=== PATIENT | male | born 1965 | race Caucasian/White ===

== ENCOUNTER 2024-11-22 09:26 | Emergency (ER) | payer BC, SELFPAY ==
--- NOTE | 2024-11-22 | XR_ITS ---
Examinations: MRI Brain without intravenous contrast. MRI brain with intravenous contrast MRA brain with intravenous contrast. MRA brain without intravenous contrast MRA neck with intravenous contrast Date and time of exam: November 22, 2024 at 1833 hours INDICATIONS: Dizziness nausea lower leg weakness beginning 2 days ago, a CT brain scan November 22, 2024 large abnormal area of edema in the right temporal lobe Technique: Multiple axial and sagittal images of the brain have been obtained Siemens high-resolution 1.5 Christine short bore scanner is utilized. Sagittal sections, T1-weighted, TR 500, TE 14 Axial sections proton density and T2-weighted, TR 3,000, TE 34, TR 3,000, TE 91 Inversion recovery axial images, TR 9,260, TE 111, TI 2,500 Diffusion weighted images, axial sections, TR 4,800, TE 128, B value 1,000 Axial sections, ADC map, TR 4,800, TE 128. Contrast images have been obtained post intravenous 20 cc Gadolinium. T1-weighted axial and coronal images post contrast have been obtained. Angiographic images of neck and brain are obtained pre and post contrast. 3-D post processing performed, including brain, extracranial neck arterial maximum intensity projections Findings: Sellaturcica is not enlarged. The optic chiasm and infundibular stalk are not remarkable. Prepontine and interpeduncular cisterns are not enlarged. No localized enlargement of the medulla or pattie. Fourth ventricle and cerebellar tonsils normal in position. Subacute hemorrhage is not seen. Fourth ventricle is midline. Mass in the cerebellopontine angle region is not evident. 7th and 8th nerve complexes exhibits symmetry. Globes are symmetrical with no retro-orbital mass. Increased white matter signal prominent in the right temporal lobe measuring up to 8 x 4 cm Diffusion-weighted images demonstratevery subtle foci of restricted diffusion without signal deficit on the corresponding ADC map. Mass-effect upon the ventricular system is not identified. Small linear area of enhancement in the right temporal lobe, axial image 13 and subtle areas of enhancement in the edema coronal image 14 MRA brain carotid images no carotid stenoses, no large vessel occlusions Impression: Large area of edema, 8 x 4 cm in the right temporal lobe No findings diagnostic for acute infarct Subtle areas of enhancement in the large area of edema as described above, favoring cerebral neoplasm Recommend this patient return in the a.m. for triple dose gadolinium postcontrast images to better assess for tumor enhancement
[2024-11-22 09:54] VITALS: BP 119/88; PULSE 97; RESP 16; TEMP 37.1; O2SAT 95; BMI 24.1
--- NOTE | 2024-11-22 10:13 | XR_ITS ---
Examination: CT brain head without contrast. 2-D sagittal coronal reconstructions Date and time of exam:November 22, 2024 1020 hours INDICATIONS: Onset left-sided body numbness beginning this morning CTDI: vol (mGy):46.8 DLP: (mGycm):947 Technique: Multiple CT axial sections of the brain have been obtained, 5 mm slice thickness. Contrast has not been administered. 2-D sagittal, coronal reconstructions have been obtained Low dose protocols were performed. One or more of the following dose reduction techniques were used; automated exposure control, adjustment of the mA and/or KV according to patient size, use of iterative reconstruction technique. Findings: Large area of edema in the right temporal lobe with central increased density Mass effect with shift of the frontal horns to the left 5 mm No acute hemorrhage Cranial vault is intact IMPRESSION: Large abnormal area of edema in the right temporal lobe with central increased density, differential would include brain neoplastic lesion, infarct not excluded Recommend brain MRI MRA follow-up, pre and postcontrast
[2024-11-22 10:43] LABS: Basophils % (Auto) 1 % (0-2.5); Eosinophils # (Auto) 0.1 Thou/mm3 (0.0-0.5); Eosinophils % (Auto) 3 % (0-10); Hematocrit 50.2 % (41.0-53.0); Hemoglobin 17.1 g/dL (13.5-16.0); Immature Granulocytes % (Auto) 0 % (0-0); Immature Granulocytes Auto 0.01 Thou/mm3 (0.00-0.00); Lymphocytes # (Auto) 1.1 Thou/mm3 (1.0-4.8); Lymphocytes % (Auto) 22 % (10-50); Mean Corpuscular HGB Conc 34.1 g/dl (31.0-37.0); Mean Corpuscular Volume 91 fL (80-100); Monocytes # (Auto) 0.3 Thou/mm3 (0.0-0.8); Monocytes % (Auto) 7 % (0-12); Neutrophils # (Auto) 3.2 Thou/mm3 (1.8-7.7); Neutrophils % (Auto) 67 % (37-80); Nucleated Red Blood Cell % 0 /100 WBC (0); Platelet Count 158 Thou/mm3 (140-440); RDW Standard Deviation 47.8 fL (35.1-43.9); Red Blood Count 5.52 Miln/mm3 (4.50-5.90); White Blood Count 4.7 Thou/mm3 (3.8-10.6)
[2024-11-22 11:12] LABS: Alanine Aminotransferase 41 U/L (10-49); Albumin, Serum 4.9 gm/dL (3.4-4.8); Albumin/Globulin Ratio 1.8 (1.2-2.2); Alkaline Phosphatase 71 U/L (46-116); Anion Gap 8 (7-16); Aspartate Amino Transferase 35 U/L (0-34); BUN/Creatinine Ratio 8 Ratio (12-20); Bilirubin,Total 0.9 mg/dL (0.3-1.2); Blood Urea Nitrogen 10 mg/dL (9-23); Calcium 9.7 mg/dL (8.3-10.6); Calcium (Corrected) 9.7 mg/dL (8.5-10.1); Carbon Dioxide 26.2 mMol/L (20.0-31.0); Chloride 109 mMol/L (98-107); Creatinine (Component) 1.2 mg/dL (0.6-1.3); Estimated Creatinine Clearance 64.6 mL/min (>60); Globulin 2.8 gm/dL (2.3-3.5); Glucose 104 mg/dL (74-106); Lipase 36 U/L (12-53); Osmolality,Calculated 283 (275-295); Potassium 4.7 mMol/L (3.4-5.1); Sodium 143 mMol/L (136-145); Total Protein 7.7 gm/dL (5.7-8.2); eGFR > 60 See Note
--- NOTE | 2024-11-22 12:20 | PD.EDRME ---
Rapid [facility] Screening [facility]am [facility] Arrival date/time: 11/22/24 09:26 Chief Complaint: Dizziness Time Seen by Provider: 11/22/24 09:56 Vital signs: Vital Signs Temperature 98.8 F 11/22/24 09:54 Pulse Rate 97 11/22/24 09:54 Respiratory Rate 16 11/22/24 09:54 Blood Pressure 119/88 H 11/22/24 09:54 Pulse Oximetry (%) 95 11/22/24 09:54 Oxygen Delivery Method Room Air 11/22/24 09:54 [facility] Narrative: 59 y/o male patient presents to ED with complaint of N/T to left lower leg that waxes and wanes X 2 days. He denies head trauma, he denies headache or vision loss. He states he has gained 8 lbs over the last week but attributes it to possible recent spam consumption. He denies previous hx of HTN but attests to anxiety and depression.
--- NOTE | 2024-11-22 12:30 | PC.NURSE ---
Patient presents to ED with c/o dizziness x2 episodes in the last 4days. Patient is ambulatory, alert, oriented x4, Patient with hx of chiari malformation. Patient updated with plan of care and call light is within reach.
--- NOTE | 2024-11-22 12:48 | PD.EDDIZZY ---
ED Dizzyness RME/HPI General Chief Complaint: Dizziness Stated Complaint: Anxious, dizziness at 0200, left leg numbness Time Seen by Provider: 11/22/24 09:56 Arrival date/time: 11/22/24 09:26 59-year-old male with a past medical history of Chiari malformation, presents to the ED with a complaint of dizziness, left eye watering and left leg tingling/ shock feeling twice since Friday. He states the episodes last a few minutes, the last 1 occurring at 2 AM this morning. He denies room spinning but states he feels like he leaves his body for a minute and then returns . He denies any visual or hearing changes, denies numbness, tingling or weakness to his upper extremities. He denies any numbness or weakness to his bilateral lower extremities only the episodic tingling of his left lower extremity. He denies any difficulty with speech or walking and denies any facial asymmetry. He has had nausea and shortness of breath for approximately 1 year. He has occasional headaches to the bilateral occiput or occasionally to the left occiput/parietal area. He denies any recent illness with fever, chills, cough, vomiting or abdominal pain. He is a previous smoker, having smoked for 2 to 3 years in the 1980s but has not smoked since. He has occasional alcohol consumption. He denies any unintentional weight loss. RME / HPI RME / HPI Narrative: 59 y/o male patient presents to ED with complaint of N/T to left lower leg that waxes and wanes X 2 days. He denies head trauma, he denies headache or vision loss. He states he has gained 8 lbs over the last week but attributes it to possible recent spam consumption. He denies previous hx of HTN but attests to anxiety and depression. Related Data Home Medications ?Medication ?Instructions ?Recorded ?Confirmed buprenorphine HCl 150 mcg buccal 75 mcg buccal Q12H 04/14/23 09/11/23 film (Belbuca) doxazosin 4 mg tablet 4 mg PO HS 04/14/23 09/11/23 fluticasone furoate 50 2 mcg inhalation DAILY 04/14/23 09/11/23 mcg/actuation blister powder for inhalation oxybutynin chloride 5 mg tablet 5 mg PO HS 04/14/23 09/11/23 sertraline 100 mg tablet 100 mg PO HS 04/14/23 09/11/23 pregabalin 25 mg capsule 25 mg PO TID 09/11/23 09/11/23 Allergies Allergy/AdvReac Type Severity Reaction Status Date / Time No Known Allergies Allergy Verified 11/22/24 09:33 Review of Systems Review of Systems Systems Reviewed: All systems reviewed, normal except as documented Past Medical History Past Medical History NEUROLOGIC: Positive Neurological Disorders (chiari malformation) and Migraine; Negative Seizures CARDIAC: Negative Cardiac Disorders or Congestive Heart Failure RESPIRATORY: Negative Chronic Obstructive Pulmonary Disease (COPD) GASTROINTESTINAL: Negative Gastrointestinal Disorders GENITOURINARY: Positive Genitourinary Disorders and Benign Prostatic Hyperplasia; Negative Renal Disease MUSCULOSKELETAL: Positive Musculoskeletal Disorders, Arthritis, Degenerative Disk Disease, Scoliosis (thoracic area) and Degenerative Joint Disease ENDOCRINE: Negative Endocrine Disorders, Diabetes Mellitus Type 1 or Diabetes Mellitus Type 2 HEMATOLOGIC: Negative Blood Disorders PSYCHO/SOCIAL: Positive Depression, Anxiety and Post Traumatic Stress Disorder OTHER HISTORY: Positive Hospitalization (surgery), Chicken Pox and Mumps; Negative Autoimmune Disease, Shingles, Blood Transfusions, Blood Transfusion Reaction, Anesthesia Reactions, MRSA or Cancer Family History FAMILY HISTORY: Positive Family Respiratory Disorders, Family Cardiac Disorders, Family Cancer and Family Surgery; Negative Family Psychiatric Problems, Family Gastrointestinal Problems or Family Anesthesia Reaction Surgical History SURGICAL: Positive Bowel Surgery (abd hernia) OTHER SURGICAL HX: testicular hydrocele Social History SMOKING STATUS: Former smoker ED Exam Narrative Physical exam: Alert and oriented 59-year-old male, no acute distress. Vital signs blood pressure 119/88, pulse 97, respirations 16 and nonlabored, temp 98.8, O2 sat 95% on room air. Pupils are PERRL, EOMs intact, no nystagmus noted, no facial asymmetry, equal sensory and motor. Cranial nerves II through XII grossly intact. Equal casting room helper strength, equal pedal push/pull. DTRs are equal bilaterally to upper and lower extremities. Lungs are clear, regular rate and rhythm without murmurs. Course Course Course Narrative: Labs reveal a normal white count with elevated hemoglobin of 17.1 and normal hematocrit of 50.2% with normal platelets of 158. Chemistry panel reveals mildly elevated chloride of 109, normal sodium, potassium, CO2, gap. BUN and creatinine are normal. AST is minimally elevated at 35 with normal ALT and alk phos. Lipase is normal at 36. CT Brain Findings: Large area of edema in the right temporal lobe with central increased density. Mass effect with shift of the frontal horns to the left 5 mm. No acute hemorrhage. Cranial vault is intact. IMPRESSION: Large abnormal area of edema in the right temporal lobe with central increased density, differential would include brain neoplastic lesion, infarct not excluded. Recommend brain MRI MRA follow-up, pre and postcontrast Quality Measures Suspected type of Stroke: Acute Ischemic Tenecteplase given: not given stroke Orders Category Date Time Status CT Screening NOW Care 11/22/24 13:[address] Screening X1 Care 11/22/24 13:11 Active IV [Insert IV] NOW Care 11/22/24 15:[address] chest abdomen pelvis w Stat Exams 11/22/24 13:[address] head/brain wo con Stat Exams 11/22/24 10:13 Completed MR brain wwo MRA brn wo pabon w Stat Exams 11/22/24 Completed CBC Stat Lab 11/22/24 10:29 Completed CMP [Comprehensive Metabolic Panel] Stat Lab 11/22/24 10:29 Completed Lipase Stat Lab 11/22/24 10:29 Completed Vital Signs Vital signs: Vital Signs Temperature 98.8 F 11/22/24 09:54 Pulse Rate 97 11/22/24 09:54 Respiratory Rate 16 11/22/24 09:54 Blood Pressure 119/88 H 11/22/24 09:54 Pulse Oximetry (%) 95 11/22/24 09:54 Oxygen Delivery Method Room Air 11/22/24 09:54 Dizziness MDM Narrative MDM Narrative:: 59-year-old male with a past medical history of Chiari malformation, presents to the ED with a complaint of dizziness, left eye watering and left leg tingling/ shock feeling twice since Friday. He states the episodes last a few minutes, the last 1 occurring at 2 AM this morning. He denies room spinning but states he feels like he leaves his body for a minute and then returns . He denies any visual or hearing changes, denies numbness, tingling or weakness to his upper extremities. He denies any numbness or weakness to his bilateral lower extremities only the episodic tingling of his left lower extremity. He denies any difficulty with speech or walking and denies any facial asymmetry. He has had nausea and shortness of breath for approximately 1 year. He has occasional headaches to the bilateral occiput or occasionally to the left occiput/parietal area. He denies any recent illness with fever, chills, cough, vomiting or abdominal pain. He is a previous smoker, having smoked for 2 to 3 years in the 1980s but has not smoked since. He has occasional alcohol consumption. He denies any unintentional weight loss. Alert and oriented 59-year-old male, no acute distress. Vital signs blood pressure 119/88, pulse 97, respirations 16 and nonlabored, temp 98.8, O2 sat 95% on room air. Pupils are PERRL, EOMs intact, no nystagmus noted, no facial asymmetry, equal sensory and motor. Cranial nerves II through XII grossly intact. Equal casting room helper strength, equal pedal push/pull. DTRs are equal bilaterally to upper and lower extremities. Lungs are clear, regular rate and rhythm without murmurs. Labs reveal a normal white count with elevated hemoglobin of 17.1 and normal hematocrit of 50.2% with normal platelets of 158. Chemistry panel reveals mildly elevated chloride of 109, normal sodium, potassium, CO2, gap. BUN and creatinine are normal. AST is minimally elevated at 35 with normal ALT and alk phos. Lipase is normal at 36. CT Brain Findings: Large area of edema in the right temporal lobe with central increased density. Mass effect with shift of the frontal horns to the left 5 mm. No acute hemorrhage. Cranial vault is intact. IMPRESSION: Large abnormal area of edema in the right temporal lobe with central increased density, differential would include brain neoplastic lesion, infarct not excluded. Recommend brain MRI/MRA follow-up, pre and postcontrast CT chest abdomen and pelvis with contrast findings: IMPRESSION: Negative for pulmonary artery emboli. No mediastinal lymphadenopathy.No pneumonia pulmonary edema or pleural disease. Fatty infiltration throughout the liver. No renal or ureteral calculi, no hydronephrosis. Normal appendix. No bowel obstruction or diverticulitis. Moderate prostatomegaly. Brain MRI/MRA findings: Impression: Large area of edema, 8 x 4 cm in the right temporal lobe. No findings diagnostic for acute infarct. Subtle areas of enhancement in the large area of edema as described above, favoring cerebral neoplasm. Recommend this patient return in the a.m. for triple dose gadolinium. postcontrast images to better assess for tumor enhancement. Discussed all results with patient and attempted repeat neuro exam, however patient indicates he wants to leave because I have animals in my elderly father at home who need me. Consequences explained including worsening cerebral edema, causing herniation, permanent disability and even . Patient understands the consequences of leaving AGAINST MEDICAL ADVICE and continues to state I want to go home . Patient was encouraged to return for any new or worsening symptoms as soon as possible. Patient signed AMA form at 8:20 PM and left the ED, ambulatory without difficulties. Patient data External records reviewed:: [facility] [place] previous records Clinical information provided by:: patient Social determinants that could affect healthcare access:: mental health Patient has the following chronic illnesses:: Chiari malformation, depression, anxiety How is presenting disease/condition affected by chronic disease/condition?: exacerbated by Evaluation data The following diagnostics were reviewed and interpreted by me:: lab results and radiology exam(s) Lab and/or radiology exams considered but not ordered:: N/A Interpretation Summary: Labs reveal a normal white count with elevated hemoglobin of 17.1 and normal hematocrit of 50.2% with normal platelets of 158. Chemistry panel reveals mildly elevated chloride of 109, normal sodium, potassium, CO2, gap. BUN and creatinine are normal. AST is minimally elevated at 35 with normal ALT and alk phos. Lipase is normal at 36. CT Brain Findings: Large area of edema in the right temporal lobe with central increased density. Mass effect with shift of the frontal horns to the left 5 mm. No acute hemorrhage. Cranial vault is intact. IMPRESSION: Large abnormal area of edema in the right temporal lobe with central increased density, differential would include brain neoplastic lesion, infarct not excluded. Recommend brain MRI MRA follow-up, pre and postcontrast. CT chest abdomen and pelvis with contrast findings: IMPRESSION: Negative for pulmonary artery emboli. No mediastinal lymphadenopathy.No pneumonia pulmonary edema or pleural disease. Fatty infiltration throughout the liver. No renal or ureteral calculi, no hydronephrosis. Normal appendix. No bowel obstruction or diverticulitis. Moderate prostatomegaly. Brain MRI/MRA findings: Impression: Large area of edema, 8 x 4 cm in the right temporal lobe. No findings diagnostic for acute infarct. Subtle areas of enhancement in the large area of edema as described above, favoring cerebral neoplasm. Recommend this patient return in the a.m. for triple dose gadolinium. postcontrast images to better assess for tumor enhancement. Medications / Prescriptions Medications or Prescriptions considered but not ordered:: N/A Medication administrations:: N/A Consultations Consultation(s) initiated? (list below): Yes Consultation #1 (Physician, Specialty, Details): Discussed case with Dr. Negro. Who recommends consult with neurology after a repeat neuro exam. 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 Admission Indicated Admission indicated?: indicated Explain why admission is indicated or not indicated:: Advised patient of need for transfer to higher level of care for neurosurgical evaluation and treatment, however he wants to leave AMA as documented above. Admission Request Was there a request for admission?: No Admission Attestation Admission request attestation: Advised patient of need for transfer to higher level of care for neurosurgical evaluation and treatment, however he wants to leave AMA as documented above. Disposition Plan Disposition Plan: other (specify) (AMA) Discharge Plan Plan Patient Disposition: Left Against Medical Advice Prescriptions/Referrals Prescriptions/Med Rec: No Action sertraline 100 mg Tablet 100 mg PO HS oxybutynin chloride 5 mg Tablet 5 mg PO HS fluticasone furoate 50 mcg/actuation Blister With Device 2 mcg INHALATION DAILY doxazosin 4 mg Tablet 4 mg PO HS buprenorphine HCl [Belbuca] 150 mcg Film 75 mcg BUCCAL Q12H pregabalin 25 mg capsule 25 mg PO TID Patient Comments: TAKE 1 CAPSULE BY MOUTH THREE TIMES A DAY Referrals: Wally Caldwell PA-C [Primary Care Provider] - In 1 week Problem List Clinical Impression: Cerebral edema, Brain neoplasm Impression comment: Patient left AMA after discussion of diagnostic findings. AMA form signed. Patient/Caregiver Discharge Instructions Print Language: Amharic COLTON/SKIP Supervising Physician PA/CORPORATE [employer]OURCES MANAGER Supervising Physician: Dr. Guallpa
[2024-11-22 12:52] VITALS: BP 127/82; PULSE 86; RESP 14; TEMP 36.6; O2SAT 96
--- NOTE | 2024-11-22 13:11 | XR_ITS ---
Examination: CT chest with intravenous contrast CT abdomen with intravenous contrast CT pelvis with intravenous contrast 2-D coronal and sagittal reconstructions Time of exam: November 22, 2024, 1547 hours INDICATIONS: Chest pain abdominal pain and shortness of breath dyspnea and dizziness today CTDI: vol (mGy) : 6.87 DLP: (mGycm): 563 Technique: Multiple axial images of the chest, abdomen and pelvis with intravenous contrast, 3.0 mm slice thickness. Images obtained post intravenous injection Isovue 370 60 cc. 2-D sagittal and coronal reconstructions. Low dose protocols were performed. One or more of the following dose reduction techniques were used; automated exposure control, adjustment of the mA and/or KV according to patient size, use of iterative reconstruction technique. Findings: No thoracic aortic aneurysmal dilatation or dissection. No pulmonary artery filling defects No paratracheal tracheobronchial or bronchopulmonary adenopathy. No pneumonia or pulmonary edema or pleural disease Fatty infiltration throughout the liver 4 mm liver cyst No gallstones No pancreatic or adrenal mass No renal or ureteral calculi, no hydronephrosis Aorta normal size No bowel obstruction Normal appendix No diverticulitis Transverse prostate dimension 5.3 cm Fat-containing inguinal hernias Contracted urinary bladder Advanced degenerative disc disease L5-S1 IMPRESSION: Negative for pulmonary artery emboli No mediastinal lymphadenopathy. No pneumonia pulmonary edema or pleural disease. Fatty infiltration throughout the liver No renal or ureteral calculi, no hydronephrosis Normal appendix No bowel obstruction or diverticulitis. Moderate prostatomegaly
[2024-11-22 15:03] VITALS: BP 116/79; PULSE 73; RESP 13; TEMP 36.8; O2SAT 97
[2024-11-22 16:42] VITALS: BP 112/75; PULSE 76; RESP 13; TEMP 36.4; O2SAT 95
--- NOTE | 2024-11-22 16:46 | PC.NURSE ---
@[id number] This scenario writer spoke with data technical lead informed screening was done and requested a possible eta to inform patient. Per tech unable to give estimated time as there was 1 patient on table and 2 outpatient to do prior to this patient. Rn informed patient that data technical lead is aware that patient is waiting. Patient agrees with plan of care.
[2024-11-22 18:40] VITALS: BP 115/75; PULSE 74; RESP 15; TEMP 36.7; O2SAT 94
--- NOTE | 2024-11-22 21:03 | PC.NURSE ---
PT LEFT AMA, ALL RISK AND CONSEQUENCES EXPLAINED BY DR RODARTE AND COLTON QUICK. RN WITNESS. AMA FORM SIGNED BY PT.
== END 2024-11-22 21:05 | disposition left against medical advice (07) ==
PROVIDERS: Physician Assistant; Emergency Provider Emergency Medicine; PCP Physician Assistant
DX: D49.6 Neoplasm of unspecified behavior of brain (principal); Z53.29 Procedure and treatment not carried out because of patient's decision for other reasons; K76.0 Fatty (change of) liver, not elsewhere classified; N40.0 Benign prostatic hyperplasia without lower urinary tract symptoms
CPT/HCPCS: 36415; 70450; 70546; 70548; 70553; 71260; 74177; 80053; 83690; 85025; 99285; A4649; A9579; Q9967

== ENCOUNTER → 2025-03-04 | Outpatient (CLI) | payer MEDICARE, MEDICAID, SELFPAY ==
--- NOTE | 2025-03-04 17:00 | XR_ITS ---
EXAMINATION: MRI brain with intravenous contrast TECHNIQUE: Multiple axial sagittal coronal brain MRI images post intravenous administration 13 cc gadolinium Date and time: March 04, 2025, 1746 hours COMPARISON: November 22, 2024 INDICATIONS: Large abnormal area of edema in the right temporal lobe on brain MRI November 22, 2024 FINDINGS: Ventricles are normal in size and configuration Extensive abnormal low density is present in the right temporal lobe There appears to be subtle enhancement in the right temporal lobe, axial image 11, coronal image 11 The area of edema extending over at least 5.6 cm anterior posterior and 4.2 cm mediolateral IMPRESSION: Large abnormal area of edema in the right temporal lobe with subtle enhancement, of concern for cerebral neoplasm Recommend this patient return for triple dose postcontrast brain MRI images
== END | disposition home or self-care (01) ==
PROVIDERS: PCP Internal Medicine; Referring Provider Internal Medicine; Visit Provider Internal Medicine
DX: G93.9 Disorder of brain, unspecified (principal); C71.2 Malignant neoplasm of temporal lobe
CPT/HCPCS: 70552; A9577